=== PATIENT | female | born 1995 | race Caucasian/White ===

== ENCOUNTER 2020-04-22 04:16 | Emergency (ER) | payer OTHER ==
--- NOTE | 2020-04-22 04:58 | EDM.PDOC ---
ED HPI GENERAL MEDICAL PROBLEM - General Chief Complaint: Back Pain or Injury Stated Complaint: Back pain Time Seen by Provider: 04/22/20 04:50 Source of Information: Reports: Patient History Limitations: Reports: No Limitations - History of Present Illness INITIAL COMMENTS - FREE TEXT/NARRATIVE: Patient comes emergency department today from home with complaints of right lower back pain. This patient was lifting and moving multiple sandbags earlier today. She relates that she has a history of Tourette's and sometimes has some muscle spasms as well. While she was bending over at the knees and the waist she suddenly had a severe sharp shooting pain in the right lower back. This pain got worse throughout the night and started going down her right buttocks and down her posterior right thigh about to her knee. Fall or injure herself. She has no loss of bowel or bladder. She has no other paresthesias of the lower extremity. She denies any change in the functionality of her lower extremity. No Covid exposure. No Covid symptoms. She had taken some ibuprofen and tried to relax and it did not improve and she was unable to sleep due to the pain. Right low back Pain Score (Numeric/FACES): 5 - Related Data Allergies Allergy/AdvReac Type Severity Reaction Status Date / Time Penicillins Allergy Rash Verified 04/22/20 05:09 Home Meds: Home Meds Albuterol [Take Home: Albuterol 18 GM, 1 INH Pack] 2 puff INH Q4H PRN 04/22/20 [History] Cyclobenzaprine [Flexeril] 10 mg PO TID PRN #12 tab 04/22/20 [Rx] predniSONE [Prednisone] 40 mg PO DAILY 4 Days #8 tablet 04/22/20 [Rx] Past Medical History Respiratory History: Reports: Asthma - Past Surgical History GI Surgical History: Reports: Cholecystectomy Social & Family History - Caffeine Use Caffeine Use: Reports: Soda ED ROS GENERAL - Review of Systems Review Of Systems: Comprehensive ROS is negative, except as noted in HPI. ED EXAM,LOWER BACK PAIN/INJURY - Physical Exam Exam: See Below Exam Limited By: No Limitations General Appearance: Alert, WD/WN, Mild Distress Eye Exam: Left Eye: EOMI, PERRL Ears: Normal External Exam Nose: Normal Inspection Throat/Mouth: Normal Inspection Head: Atraumatic, Normocephalic Neck: Normal Inspection Respiratory/Chest: No Respiratory Distress, Lungs Clear, Normal Breath Sounds, Chest Non-Tender Cardiovascular: Normal Peripheral Pulses, Regular Rate, Rhythm GI/Abdominal: Normal Bowel Sounds, Soft, Non-Tender (Female) Exam: Deferred Rectal (Female) Exam: Deferred Back Exam: Decreased Range of Motion, Other (DTRs in the lower extremities at the Achilles and patella are 2+ bilaterally and equal). No: Normal Inspection (Examination of the back is rather unremarkable. There is no bruising swelling ecchymosis bony deformity subcutaneous emphysema or other signs of trauma the posterior. Palpation of the posterior midline spine does not elicit any tenderness bony deformities or step-offs. She does have some point tenderness at about the SI joint area. She has a positive straight leg raise on the right negative on the left. Rest of the examination of the posterior is unremarkable.) Extremities: Normal Inspection, Normal Range of Motion, Non-Tender, No Pedal Edema, Normal Capillary Refill Neurological: Alert, Normal Mood/Affect, Normal Dorsiflexion, Normal Plantar Flexion, Normal Gait, No Motor/Sensory Deficits DTR - Lower Extremities: 2+: Knee (R), Knee (L), Ankle (R), Ankle (L) Psychiatric: Normal Affect, Normal Mood Skin Exam: Warm, Dry, Intact, Normal Color Course - Vital Signs Last Recorded V/S: Last Vital Signs Temp 96.9 F 04/22/20 04:20 Pulse 112 H 04/22/20 04:20 Resp 16 04/22/20 04:20 BP 147/74 H 04/22/20 04:20 Pulse Ox 98 04/22/20 04:20 - Orders/Labs/Meds Meds: Medications Discontinued Medications Generic Name Dose Route Start Last Admin Trade Name Kevenq PRN Reason Stop Dose Admin Ketorolac Tromethamine 30 mg 04/22/20 04:57 04/22/20 05:10 Toradol IM 04/22/20 04:58 30 mg ONETIME ONE Administration Orphenadrine Citrate 60 mg 04/22/20 04:57 04/22/20 05:10 Norflex IM 04/22/20 04:58 60 mg NOW STA Administration Prednisone 40 mg 04/22/20 05:13 04/22/20 05:22 Prednisone PO 04/22/20 05:14 40 mg ONETIME ONE Administration - Re-Assessments/Exams Free Text/Narrative Re-Assessment/Exam: Patient was given 30 mg of Toradol IM. Norflex 60 mg IM. Prednisone 40 mg p.o. I discussed the natural course of this acute muscle spasm type sciatica pain in her right lower back. I also gave her some specific exercises to do over the next couple of days. She is struggling to improve with the therapy to include Flexeril and NSAIDs and exercises she could consider physical therapy. She was also given some prednisone. She is comfortable this plan and her questions were answered. Departure - Departure Time of Disposition: 05:20 Disposition: Home, Self-Care 01 Clinical Impression: Sciatica Qualifiers: Laterality: right Qualified Code(s): M54.31 - Sciatica, right side - Discharge Information Prescriptions: Cyclobenzaprine [Flexeril] 10 mg PO TID PRN #12 tab PRN Reason: Pain predniSONE [Prednisone] 40 mg PO DAILY 4 Days #8 tablet Instructions: Back Injury Prevention, [id number], Sciatica, [id number], Pain Medicine Instructions, [id number] Referrals: PCP,Unobtain [Ordering Only Provider] - Forms: ED Department Discharge Additional Instructions: Do 4 sets of 10 of the low back pain exercises that were supplied to you 4 times a day. Now obviously start slowly and work up to this amount. Tylenol and or Ibuprofen as needed for pain Heat or ice to the affected area. Whichever works best for you. Heat probably in this instance. Do not do too much physical activity and do not do too little there is fine line that you will have to identify. Flexeril, 1 tablet three times a day as needed for pain muscle spasms. RX [facility] to [facility]. Prednisone 40mg daily for the next 5 days. RX sent to the pharmacy. First dose given in the ED. Return to the ED if new or worsening symptoms. Recheck in the clinic in the next 4-6 days if not improving. Consider referring yourself to physical therapy if not improving rapidly. Sepsis Event Note (ED) - Focused Exam Vital Signs: Vital Signs Temp Pulse Resp BP Pulse Ox 04/22/20 04:20 96.9 F 112 H 16 147/74 H 98
[2020-04-22] MEDS: Ketorolac 30 MG/ML SDV IM ONE (05:10)
[2020-04-22] MEDS: Orphenadrine 60 MG/2 ML Inj IM STA (05:10)
[2020-04-22] MEDS: predniSONE 20 MG Tab PO ONE (05:22)
[2020-04-22 05:44] VITALS: BP 147/74; PULSE 112
== END 2020-04-22 05:30 | disposition home or self-care (01) ==
LOC: VM.ED 04:16
DX: M54.41 Lumbago with sciatica, right side (principal); J45.909 Unspecified asthma, uncomplicated; Z88.0 Allergy status to penicillin
CPT/HCPCS: 96372; 99283; J1885; J2360; J7512

== ENCOUNTER 2023-04-02 14:53 | Emergency (ER) | payer OTHER ==
[2023-04-02] MEDS ORDERED: Ketorolac 30 MG/ML SDV IM ONE (14:58)
[2023-04-02] MEDS ORDERED: Orphenadrine 60 MG/2 ML Inj IM ONE (14:59)
[2023-04-02 15:31] VITALS: BP 129/76; PULSE 90
[2023-04-02] MEDS ORDERED: HYDROmorphone 0.5 MG/0.5 ML Syringe IM ONE (16:23)
== END 2023-04-02 17:28 | disposition home or self-care (01) ==
LOC: VM.ED 14:53
DX: M54.50 Low back pain, unspecified (principal); J45.909 Unspecified asthma, uncomplicated; Z90.49 Acquired absence of other specified parts of digestive tract; Z88.0 Allergy status to penicillin; Z79.899 Other long term (current) drug therapy
CPT/HCPCS: 96372; 99283; 99284; J1170; J1885; J2360

== ENCOUNTER 2023-04-03 11:39 | Emergency (ER) | payer OTHER ==
[2023-04-03] MEDS ORDERED: Ketorolac 30 MG/ML SDV IM ONE (12:08)
[2023-04-03] MEDS ORDERED: Orphenadrine 60 MG/2 ML Inj IM ONE (12:09)
[2023-04-03] MEDS ORDERED: HYDROmorphone 1 MG/ML Syringe IM ONE (12:49)
== END 2023-04-03 14:39 | disposition home or self-care (01) ==
LOC: SUPCPDRO 11:39 → VM.ED 11:39
DX: M54.50 Low back pain, unspecified (principal); J45.909 Unspecified asthma, uncomplicated; Z88.0 Allergy status to penicillin; Z79.899 Other long term (current) drug therapy; Z90.49 Acquired absence of other specified parts of digestive tract
CPT/HCPCS: 96372; 99283; J1170; J1885; J2360

== ENCOUNTER 2024-09-20 16:32 | Emergency (ER) | payer OTHER ==
[2024-09-20] MEDS: Albuterol/Ipratropium 3.0-0.5 MG/3 ML Neb Soln NEB ONE (16:47)
[2024-09-20] MEDS: Take Home: Albuterol 18 GM Inhaler, 1 Inhaler Pack INH PRN (17:11)
[2024-09-20] MEDS: Take Home: predniSONE 20 MG, 2 Tab Pack PO ONE (17:11)
[2024-09-20 17:35] VITALS: BP 128/76
[2024-09-20 19:07] VITALS: PULSE 92
== END 2024-09-20 17:06 | disposition home or self-care (01) ==
LOC: VM.ED 16:32
DX: J45.909 Unspecified asthma, uncomplicated (principal); Z88.0 Allergy status to penicillin; Z79.899 Other long term (current) drug therapy; Z90.49 Acquired absence of other specified parts of digestive tract
CPT/HCPCS: 94640; 99283; 99284; A9270; J7512; J7620